=== PATIENT | female | born 1975 | race African-American/Black ===

== ENCOUNTER 2023-11-24 06:20 | Inpatient (IN) ==
[~2023-11-24 06:20] MED LIST: SUPRANE ONE
[2023-11-24] MEDS: NS 1,000 ML IV 1,000 ML IV SCH ×2 (06:35→11:34)
[2023-11-24] MEDS: NOZIN NASAL SANITIZER TP ONE (06:36)
[2023-11-24] MEDS: ANCEF VIAL 1 GRAM IVP ONE (07:07)
[2023-11-24] MEDS: NS 100 ML IV 100 ML ONE (07:07)
[2023-11-24] MEDS: QUELICIN (OR ANECTINE) ONE (07:18)
[2023-11-24] MEDS: FENTANYL VIAL INJ 250 mcg ONE (07:18)
[2023-11-24] MEDS: VERSED ONE (07:18)
[2023-11-24] MEDS: PEPCID 20 MG VIAL ONE (07:18)
[2023-11-24] MEDS: BETADINE SOLN ONE (07:18)
[2023-11-24] MEDS: ZOFRAN INJ 4 MG VIAL ONE (07:18)
[2023-11-24] MEDS: ZEMURON 100 MG VIAL ONE (07:18)
[2023-11-24 07:21] VITALS: BMI 38.6
[2023-11-24] MEDS: OFIRMEV IV 1000 MG VIAL 1,000 MG/100 ML VIAL IV ONE (07:38)
[2023-11-24] MEDS ORDERED: REGLAN INJ 10 MG VIAL IVP PRN (07:42)
[2023-11-24] MEDS ORDERED: BARHEMSYS INJ IVP PRN (07:42)
[2023-11-24] MEDS ORDERED: ZOFRAN INJ 4 MG VIAL IVP PRN ×2 (07:42→10:01)
[2023-11-24] MEDS ORDERED: BENADRYL INJ 50 MG VIAL IVP PRN ×3 (07:42→10:34)
[2023-11-24] MEDS: NS 1,000 ML IV 1,000 ML ONE (09:24)
[2023-11-24] MEDS ORDERED: TORADOL 30 MG VIAL IVP PRN (10:01)
[2023-11-24] MEDS ORDERED: MORPHINE SULFATE PCA 30 MG IVP PRN (10:03)
[2023-11-24] MEDS ORDERED: NARCAN INJ IVP PRN ×2 (10:03→10:34)
[2023-11-24] MEDS: DILAUDID INJ ONE (10:11)
[2023-11-24] MEDS: DILAUDID INJ IVP PRN (10:13)
[2023-11-24] MEDS: DROPERIDOL ONE (10:19)
[2023-11-24] MEDS ORDERED: NS 1,000 ML IV 1,000 ML IV SCH (11:00)
[2023-11-24] MEDS: TORADOL 30 MG VIAL IVP PRN (11:04)
[2023-11-24] MEDS: MORPHINE SULFATE PCA 30 MG IVP PRN (11:22)
[2023-11-24] MEDS: ZOFRAN INJ 4 MG VIAL IVP PRN (14:04)
[2023-11-25 06:21] LABS: BASOPHILS # (AUTO) 0.1 X10^3/uL (0.0-0.1); BASOPHILS % (AUTO) 0.4 % (0.2-1.0); EOSINOPHILS # (AUTO) 0.1 x10^3/uL (0.0-0.2); EOSINOPHILS % (AUTO) 0.4 % (0.9-2.9); HEMATOCRIT 26.7 % (36.0-47.0); HEMOGLOBIN 8.4 g/dL (12.0-16.0); LYMPHOCYTES % (AUTO) 15.3 % (21.0-51.0); MEAN CORPUSCULAR HEMOGLOBIN 23.9 pg (27.0-34.0); MEAN CORPUSCULAR HGB CONC 31.4 g/dL (33.0-35.0); MEAN PLATELET VOLUME 6.9 fL (7.4-11.0); MONOCYTES # (AUTO) 1.1 x10^3/uL (0.3-0.8); MONOCYTES % (AUTO) 8.5 % (0.0-13.0); NEUTROPHILS # (AUTO) 9.7 x10^3/uL (2.2-4.8); NEUTROPHILS % (AUTO) 75.4 % (42.0-75.0); PLATELET COUNT 468 X10^3/uL (150.0-450.0); RED BLOOD COUNT 3.51 X10^6/uL (3.5-5.4); RED CELL DISTRIBUTION WIDTH 15.2 % (11.6-16.5); WHITE BLOOD COUNT 12.8 X10^3/uL (3.6-10.0)
[2023-11-25 06:32] LABS: BLOOD UREA NITROGEN 2 mg/dL (7-18); CALCIUM 7.7 mg/dL (8.5-10.1); CARBON DIOXIDE 28.1 mmol/L (21-32); CHLORIDE 102 mmol/L (98-107); COR NA(FOR HYPERGLY) 137 mmol/L (136-145); CREATININE 0.66 mg/dL (0.55-1.02); GLUCOSE 144 mg/dL (65-99); POTASSIUM 3.1 mmol/L (3.5-5.1); SODIUM 136 mmol/L (136-145); eGFR NON BLACK RACES > 60 (>60)
[2023-11-25] MEDS ORDERED: PERCOCET TAB 5/325 MG PO PRN (07:43)
[2023-11-25] MEDS ORDERED: CONSULT PHARMACY - POTASSIUM & MAGNESIUM XX SCH (08:00)
[2023-11-25] MEDS: ESTRACE PO SCH (09:12)
[2023-11-25] MEDS: LOPRESSOR TAB 50 MG PO SCH (09:13)
[2023-11-25] MEDS: K-DUR TAB 20 MEQ PO SCH (09:13)
[2023-11-25] MEDS: LIPITOR TAB 20 MG PO SCH (09:13)
[2023-11-25] MEDS: COLACE CAP 100 MG PO SCH (09:13)
[2023-11-25] MEDS: MOTRIN TAB 800 MG PO PRN (09:21)
[2023-11-25] MEDS: MYLICON TAB 80 MG CHEW PO PRN (10:59)
[2023-11-25] MEDS: CONSULT PHARMACY - POTASSIUM & MAGNESIUM XX SCH (11:25)
[2023-11-25] MEDS: MAG-OX TAB PO SCH (12:04)
[2023-11-25] MEDS: BACTROBAN TOPICAL OINT TOP SCH (13:43)
[2023-11-25] MEDS: GLUCOPHAGE PO SCH (17:35)
[2023-11-26 00:05] VITALS: RESP 20
[2023-11-26 09:24] VITALS: BP 106/51; PULSE 102; TEMP 98; O2SAT 98
== END 2023-11-26 11:08 | disposition home or self-care (01) | DRG 743 ==
LOC: MED/SURG 06:20
PROVIDERS: ADMIT Specialist; ATTEND Specialist
DX: R10.2 Pelvic and perineal pain; N92.5 Other specified irregular menstruation; D25.2 Subserosal leiomyoma of uterus; R87.610 Atypical squamous cells of undetermined significance on cytologic smear of cervix (ASC-US)